=== PATIENT | male | born 1970 | race Caucasian/White ===

== ENCOUNTER 2016-05-30 08:42 | Outpatient (CLI) | payer OTHER | END 2016-05-30 08:43 | disposition home or self-care (01) | DX: G47.33 Obstructive sleep apnea (adult) (pediatric) (principal) ==

== ENCOUNTER 2016-07-04 08:42 | Outpatient (CLI) | payer OTHER | END 2016-07-04 08:43 | disposition home or self-care (01) | DX: G47.33 Obstructive sleep apnea (adult) (pediatric) (principal) ==

== ENCOUNTER 2016-12-04 08:45 | Outpatient (CLI) | payer OTHER | END 2016-12-04 08:46 | disposition home or self-care (01) | LOC: SC 08:45 | PROVIDERS: ATTEND Nurse Practitioner Family | DX: G47.33 Obstructive sleep apnea (adult) (pediatric) (principal) | CPT/HCPCS: 99212; 99214 ==

== ENCOUNTER 2017-03-27 10:51 | Outpatient (CLI) | payer OTHER | END 2017-03-27 10:52 | disposition home or self-care (01) | LOC: SC 10:51 | PROVIDERS: ATTEND Nurse Practitioner Family | DX: G47.33 Obstructive sleep apnea (adult) (pediatric) (principal) | CPT/HCPCS: 99212; 99213 ==

== ENCOUNTER 2017-05-03 08:47 | Outpatient (CLI) | payer OTHER | END 2017-05-03 08:48 | disposition home or self-care (01) | LOC: SC 08:47 | PROVIDERS: ATTEND Nurse Practitioner Family | DX: G47.33 Obstructive sleep apnea (adult) (pediatric) (principal) | CPT/HCPCS: 99212; 99213 ==

== ENCOUNTER 2017-06-21 08:49 | Outpatient (CLI) | payer OTHER | END 2017-06-21 08:50 | disposition home or self-care (01) | LOC: SC 08:49 | PROVIDERS: ATTEND Nurse Practitioner Family | DX: G47.33 Obstructive sleep apnea (adult) (pediatric) (principal) | CPT/HCPCS: 99212; 99214 ==

== ENCOUNTER 2017-07-12 11:18 | Outpatient (CLI) | payer OTHER | END 2017-07-12 11:19 | disposition home or self-care (01) | LOC: SC 11:18 | PROVIDERS: ATTEND Nurse Practitioner Family | DX: G47.33 Obstructive sleep apnea (adult) (pediatric) (principal) | CPT/HCPCS: 99212; 99213 ==

== ENCOUNTER 2018-04-04 08:48 | Outpatient (CLI) | payer OTHER | END 2018-04-04 08:49 | disposition home or self-care (01) | LOC: SC 08:48 | PROVIDERS: ATTEND Nurse Practitioner Family | DX: G47.33 Obstructive sleep apnea (adult) (pediatric) (principal) | CPT/HCPCS: 99212; 99214 ==

== ENCOUNTER 2018-06-13 08:17 | Outpatient (CLI) | payer OTHER | END 2018-06-13 08:18 | disposition home or self-care (01) | LOC: SC 08:17 | PROVIDERS: ATTEND Nurse Practitioner Family | DX: G47.33 Obstructive sleep apnea (adult) (pediatric) (principal) | CPT/HCPCS: 99212; 99214 ==

== ENCOUNTER 2018-07-25 08:14 | Outpatient (CLI) | payer OTHER | END 2018-07-25 08:15 | disposition home or self-care (01) | LOC: SC 08:14 | PROVIDERS: ATTEND Nurse Practitioner Family | DX: G47.33 Obstructive sleep apnea (adult) (pediatric) (principal) | CPT/HCPCS: 99212; 99214 ==

== ENCOUNTER 2018-09-19 | Outpatient (CLI) | payer OTHER | END 2018-09-19 08:18 | disposition home or self-care (01) | DX: G47.33 Obstructive sleep apnea (adult) (pediatric) (principal) | CPT/HCPCS: 99212; 99214 ==

== ENCOUNTER 2018-12-26 08:18 | Outpatient (CLI) | payer OTHER ==
[2018-12-26 09:02] VITALS: BP 120/80
--- NOTE | 2018-12-26 09:02 | SLEEP CARE CONSULTATION ---
Information from patient questionnaire entered by Geneva Franco. I have reviewed and concur with the information entered by Geneva Franco. This document represents the service I personally performed and the decisions made by me, Naima Kaplan, RN, MSN, RECIPROCATING DRILL OPERATOR. History of Present Illness Previous diagnosis: Moderate, Obstructive Sleep Apnea-Hypopnea Syndrome AHI: 25.2 Reason for follow up: three month, other Equipment type: CPAP Equipment obtained from: [employer] Mask style: Full face Mask brand: Humanoid additional information: He continues to struggle to use CPAP. When asked what his biggest obstacle is he responded is that he just has to do it. Then I asked what he needs to do differently and he responded I just have to do it. I again reviewed his sleep study and the impact health risks of untreated apnea. CPAP Compliance Data - Data Reviewed with Patient Average duration of nightly device use: 3.95 Compliance rate %: 6.7 (90 days) Current pressure setting (cmH2O): 5-8 Humidity settin Average residual AHI: 7.4 Average large leak: 50 sec Subjective Patient concerns: reports: condensation in mask/hose, nasal congestion (He wakes with his nose congested. ). denies: aerophagia, mask discomfort, air blowing in eyes, mask leak noise, dry mouth, nose, throat, epistaxis Observed to snore while using device: No Current pressure setting perceived as: comfortable On therapy, patient: reports: sleeping better, awakening more refreshed (he has noted benefit when uses for longer times. ) Initial [place] Sleepiness Scale score: 18 Current [place] Sleepiness Scale score: 3 Allergies and Home Medications Known drug allergies: No Home medication list reviewed: Yes Allergy and home medication list: Diclofenac Sodium DR 75mg tab one up to twice daily Escitalopram Oxalate 10mg tab one every morning Atorvastatin 10mg tab one daily Ranitidine 150mg tab one up to twice daily Vitamin D3 2000IU cap one daily Review of Systems Review of systems same as previous: Yes Physical Exam Blood Pressure: 120/80 Cuff size: long Heart Rate: 80 O2 Saturation: 97 Height: 6 ft Weight: 343 lb Weight change since last visit: gained 9 pounds Body Mass Index: 46.5 BMI Classification: Obesity Class 3 Impression and Plan 1. Obstructive Sleep Apnea-Hypopnea Syndrome, moderate, with poor treatment compliance and elevated residual AHIl. HE has been unable to tolerate higher pressures and declined any adjustment. On CPAP therapy, the patient has better sleep quality and is more rested overall when uses for longer periods but continues to struggle using nightly. To improve use of CPAP , I asked him what he thought would help, he responded that " I just have to do it" and apologized for not using. I again reviewed that this is his choice and discussed why the treatment was ordered and reviewed the results of his polysomnography. 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 He agreed. Fortunately, he denied significant sleepiness symptoms before diagnosis and now but CPAP does make him feel more refreshed and rested overall. His humidity is at maximum which will generally assists nasal congestion. However, he is not congested when he goes to bed and he is waking to gurgling in hose once or twice. So I showed him how to adjust humidity down to 3 and lower if needed. If congestion continues , he can try Claritin and follow up his PCP. He is to ask his pharmacist if any interactions with current medications. He can use the heated hose if condensation but prefers cool air so he is to adjust humidity as directed. He is still falling asleep without CPAP. So I advised him to put on the CPAP while watching TV and relaxing . He is also advised again to use the bedtime alarm. Patient's apnea severity and rationale for treatment to reduce apnea, improve sleep quality and reduce cardiovascular and cerebrovascular events was reviewed. I also reviewed the benefit of consistent device use of CPAP for anxiety. * Continue CPAP pressure at 5-8cmH2O * Use CPAP nightly- miminum goal of 75%. * implement methods to reduce congestoin * If still congestion, follow up with PCP. * Notify me if snoring with mask or feeling that the pressure is too much or too little * Attempt to lose weight * Return for follow up in 1-2 months, or sooner if concerns arise I spent 100% of this 25 minute visit face to face with the patient with greater than 50% of this was spent time counseling the patient and coordination of care.
== END 2018-12-26 08:19 | disposition home or self-care (01) ==
LOC: SC 08:18
PROVIDERS: ATTEND Nurse Practitioner Family
DX: G47.33 Obstructive sleep apnea (adult) (pediatric) (principal); E66.9 Obesity, unspecified; Z68.42 Body mass index [BMI] 45.0-49.9, adult
CPT/HCPCS: 99212; 99214

== ENCOUNTER 2019-04-17 14:23 | Outpatient (CLI) | payer OTHER ==
[2019-04-17 14:52] VITALS: BP 130/80
--- NOTE | 2019-04-17 14:52 | SLEEP CARE CONSULTATION ---
Information from patient questionnaire entered by Geneva Franco. I have reviewed and concur with the information entered by Geneva Franco. This document represents the service I personally performed and the decisions made by me, Naima Kaplan, RN, MSN, GASATERIA ATTENDANT. History of Present Illness Previous diagnosis: Moderate, Obstructive Sleep Apnea-Hypopnea Syndrome AHI: 25.2 Reason for follow up: three month Equipment type: CPAP Equipment obtained from: [employer] Mask style: Full face Mask brand: Respironics Backup mask available: No (keep current as a spare when replaced) Last cushion change: unknown - uses [employer] HPI additional information: Patient feels his lack of compliance / use of CPAP is due to sleeping on couch and instead of going to bed. Patient states he just has to go to bed earlier. His goal is 9pm for bedtime. His waketime is generally 3-4am but does not use an alarm. He has a clock at the couch but not alarm. He has not used the phone alarm yet for bedtime. CPAP Compliance Data - Data Reviewed with Patient Average duration of nightly device use: 3.75 Compliance rate %: 2.2 (90 days he used it 4 days with maximum use of 7 hours ) Current pressure setting (cmH2O): 5-8 Humidity settin Average residual AHI: 3.8 Average large leak: 0 Subjective Patient concerns: reports: dry mouth, nose, throat (dry nose with and with out CPAP ). denies: aerophagia, mask discomfort, air blowing in eyes, mask leak noise, condensation in mask/hose, nasal congestion, epistaxis Observed to snore while using device: No Current pressure setting perceived as: comfortable On therapy, patient: reports: other (does not know if feels better or not with CPAP - usual sleep time is only 5-6 hours ) Initial [place] Sleepiness Scale score: 18 Current [place] Sleepiness Scale score: 7 Allergies and Home Medications Known drug allergies: No Home medication list reviewed: Yes (no changes) Review of Systems Review of systems same as previous: Yes Physical Exam Blood Pressure: 130/80 Cuff size: long Heart Rate: 82 O2 Saturation: 97 Height: 6 ft Weight: 341 lb 12.8 oz Body Mass Index: 46.3 BMI Classification: Morbidly Obese Impression and Plan 1. Obstructive Sleep Apnea-Hypopnea Syndrome, moderate , with poor treatment compliance and good apnea control. On CPAP therapy, the patient is unsure of benefit but has not used but 4 days in the past 90 days. Since he is having so much difficulty using CPAP in remembering to use though he knows he needs to use for his job and health I advised him to consider counseling to assist him to use CPAP better. Patient states he would prefer to try on his own. Thus he is advised to use bedtime alarm to sleep with CPAP every night as discused previously. He is also advised to obtain a minimum of 6 hours of sleep as the 5-6 hours he currently sleeps can increase health risks. Most people require 7-9 hours of sleep for optimal mental and physical function. He is also aware of how his weight affects his apnea risk and overall health. Patient's apnea severity and rationale for treatment to reduce apnea, improve sleep quality and reduce cardiovascular and cerebrovascular events was reviewed. I also reviewed the benefit of consistent device use of CPAP for hypertension, anxiety. * Continue CPAP pressure at 5-8 cmH2O * Use bedtime alarm. * Notify me if snoring with mask or feeling that the pressure is too much or too little * Attempt to lose weight * Call this office if any problems using CPAP * Return for follow up in 2 months , or sooner if concerns arise Time Spent with Patient (minutes): 15 I spent 100% of this visit face to face with the patient with greater than 50% of this was spent time counseling the patient and coordination of care.
== END 2019-04-17 14:24 | disposition home or self-care (01) ==
LOC: SC 14:23
PROVIDERS: ATTEND Nurse Practitioner Family
DX: G47.33 Obstructive sleep apnea (adult) (pediatric) (principal); E66.01 Morbid (severe) obesity due to excess calories; Z68.42 Body mass index [BMI] 45.0-49.9, adult
CPT/HCPCS: 99212; 99213

== ENCOUNTER 2020-06-03 07:49 | Outpatient (CLI) | payer OTHER ==
[2020-06-03 08:25] VITALS: BP 140/80
--- NOTE | 2020-06-03 08:25 | SLEEP CARE CONSULTATION ---
Information from patient questionnaire entered by Geneva Franco. I have reviewed and concur with the information entered by Geneva Franco. This document represents the service I personally performed and the decisions made by , Licha Leonard ARNP. History of Present Illness Service Date and Time: 06/03/2020 0749 Previous diagnosis: Moderate, Obstructive Sleep Apnea-Hypopnea Syndrome AHI: 25.2 (in 2014) Reason for follow up: annual (last seen 03/2019) Equipment type: CPAP Equipment obtained from: [employer] (getting supplies as needed) Mask style: Full face Backup mask available: Yes (old mask) Last cushion change: 1 month Prior sleep studies: Yes Year and Where: 2014 - [facility] Sleep HPI additional information: OLMAN STALLWORTH was diagnosed to have moderate, AHI 25.2, obstructive sleep apnea-hypopnea syndrome and returned today for CPAP therapy annual follow-up. CPAP Compliance Data - Data Reviewed with Patient Average duration of nightly device use: 4 hr 52 Compliance rate %: 70 Current pressure setting (cmH2O): 5-8 Humidity settin Average residual AHI: 4.3 Average large leak: 6 min 27 sec Subjective Missed days of use due to: denies: other (don't like machine) Patient concerns: denies: aerophagia, mask discomfort, air blowing in eyes, mask leak noise, condensation in mask/hose, nasal congestion, dry mouth, nose, throat, epistaxis, other Current pressure setting perceived as: comfortable On therapy, patient: reports: other (he feels it is about the same from sleeping with or without his CPAP). denies: drowsiness while driving Initial [place] Sleepiness Scale score: 18 (in 2013) Current [place] Sleepiness Scale score: 3 Allergies and Home Medications Home medication list reviewed: Yes (no new meds) Review of Systems Review of systems same as previous: Yes (no changes) Physical Exam Blood Pressure: 140/80 Cuff size: long Heart Rate: 73 O2 Saturation: 95 Height: 6 ft Weight: 342 lb Body Mass Index: 46.3 BMI Classification: Morbidly Obese Impression and Plan 1. Obstructive Sleep Apnea-Hypopnea Syndrome, moderate, with fair treatment compliance and good apnea control. On CPAP therapy, the patient states he does not feel any difference between CPAP use and non-use but he denies any drowsy driving issues. 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 He has not been using his CPAP consistently, 14.4% in last 180 days, but he started again about a month ago and he has brought up his compliance to 70%. He states he intends to continue to keep up his CPAP use to the compliance range. Patient's apnea severity and rationale for treatment to reduce apnea, improve sleep quality and reduce cardiovascular and cerebrovascular events was reviewed. * Continue auto CPAP pressure at 5-8 cmH2O * Notify me if snoring with mask or feeling that the pressure is too much or too little * Attempt to lose weight * Call this office if any problems using CPAP * Return for follow up in 1 year, or sooner if concerns arise Counseling Topics: Spare mask, Weight loss health impact Visit Type: In Office Time Spent with Patient (minutes): 23 Provider Statement: I spent 100% of the Face to Face Visit with the patient with greater than 50% spent counseling the patient and coordination of care.
== END 2020-06-03 07:50 | disposition home or self-care (01) ==
LOC: SC 07:49
PROVIDERS: ATTEND Nurse Practitioner Family
DX: G47.33 Obstructive sleep apnea (adult) (pediatric) (principal); E66.01 Morbid (severe) obesity due to excess calories; Z68.42 Body mass index [BMI] 45.0-49.9, adult
CPT/HCPCS: 99212; 99213

== ENCOUNTER 2020-07-20 15:57 | Outpatient (CLI) | payer OTHER ==
--- NOTE | 2020-07-20 16:54 | CT Report ---
PROCEDURE: Abdomen/Pelvis WO INDICATIONS: R FLANK PAIN, HX OF UNRINARY CLACULI TECHNIQUE: Noncontrast 5 mm thick sections acquired from the diaphragms to the symphysis. 5 mm coronal and sagi ttal reformats were then performed. For radiation dose reduction, the following was used: automated exposure control, adjustment of mA and/or kV according to patient size. COMPARISON: CT examinations dated 12/04/2014 and 07/02/2014. FINDINGS: Image quality: Excellent. ABDOMEN: Lung bases: Lung bases are clear. Heart size is normal. Solid organs: Liver and spleen are normal in size. Gallbladder demonstrates calculi within its lume n without evidence of cholecystitis. Pancreas is normal in contours. No adrenal nodules. There is post ablation scarring involving the right interpolar/inferior pole kidney, as before. Kidneys are ot herwise normal in size, without hydronephrosis or nephrolithiasis. Peritoneum and bowel: Unenhanced bowel loops demonstrate normal wall thickness and caliber. Normal a ppendix. No free fluid or air. Nodes and vessels: No retroperitoneal or mesenteric adenopathy by size criteria. Aorta and inferior vena cava are normal in caliber. Miscellaneous: No ventral hernias. PELVIS: Genitourinary: Bladder wall thickness is normal. Miscellaneous: No inguinal hernias or adenopathy. Bones: No suspicious bony lesions. No vertebral body compression fractures. IMPRESSION: 1. No evidence of urinary tract calcification, nor obstruction. 2. Postprocedural changes involving the right kidney. Next line 3. Cholelithiasis with no evidence of cholecystitis. 4. Normal appendix. Reviewed by: Melissa Sapp MD on 07/20/2020 4:53 PM PDT Approved by: Melissa Sapp MD on 07/20/2020 4:53 PM PDT Station ID: [id number]
== END 2020-07-20 15:58 | disposition home or self-care (01) ==
LOC: DI 15:57
PROVIDERS: ATTEND Registered Nurse
DX: K80.20 Calculus of gallbladder without cholecystitis without obstruction (principal)

== ENCOUNTER 2022-01-11 10:56 | Outpatient (CLI) | payer OTHER ==
[2022-01-11 11:44] VITALS: BP 102/60
--- NOTE | 2022-01-11 11:44 | SLEEP CARE CONSULTATION ---
Information from patient questionnaire entered by Earnestine Pal. I have reviewed and concur with the information entered by Earnestine Pal. This document represents the service I personally performed and the decisions made by me, Licha Leonard ARNP. History of Present Illness Service Date and Time: 01/11/2022 1056 Previous diagnosis: Moderate, Obstructive Sleep Apnea-Hypopnea Syndrome AHI: 25.2 (in 2014) Reason for follow up: annual (LAST SEEN 05/2020) Equipment type: CPAP ([facility]) Equipment obtained from: [employer] (not getting supplies, does not have money for supplies) Mask style: Full face Mask brand: Respironics (hybrid mask) Backup mask available: Yes (old mask) Last cushion change: 1 year Prior [facility]: Yes [facility] additional information: OLMAN STALLWORTH was diagnosed to have moderate, AHI 25.2, obstructive sleep apnea-hypopnea syndrome and returned today for CPAP therapy annual follow-up. Sleep Study - Results Prior sleep studies: Yes [facility] and [facility] CPAP Compliance Data - Data Reviewed with Patient Average duration of nightly device use: 4 hours 52 mins Compliance rate %: 26.7 (30 days used; 180 days used) Current pressure setting (cmH2O): 5-8 Average residual AHI: 24.5 Central apnea: 5.6 Obstructive apnea: 15.8 Hypopnea: 3.1 Average large leak: 14 mins 15 secs Subjective Missed days of use due to: reports: mask issues (hard to wear anything on his face), other (recall) Patient concerns: reports: air blowing in eyes, mask leak noise, dry mouth, nose, throat. denies: aerophagia, mask discomfort, condensation in mask/hose, nasal congestion, epistaxis Observed to snore while using device: No Current pressure setting perceived as: comfortable On therapy, patient: reports: sleeping better, awakening more refreshed, being more awake and alert during the day, more rested overall. denies: drowsiness while driving Initial [place] Sleepiness Scale score: 18 (in 2013) Current [place] Sleepiness Scale score: 8 (01/11/2022) Allergies and Home Medications Drug allergies reviewed: Yes (NKDA) Home medication list reviewed: Yes (blood thinner) Review of Systems Review of systems same as previous: No (Atrial fibrillation) Physical Exam Vital signs obtained and entered by: EARNESTINE Barney MA Blood Pressure: 102/60 (LEFT ARM ) Cuff size: long Heart Rate: 60 O2 Saturation: 95 Height: 6 ft Weight: 325 lb 9.6 oz Body Mass Index: 44.1 BMI Classification: Morbidly Obese Impression and Plan 1. Obstructive Sleep Apnea-Hypopnea Syndrome, moderate, with poor treatment compliance and fair apnea control with elevated residual AHI. The patients pressure will be changed to autoCPAP 5-12 cmH20 for elevation of residual AHI. Patient advised to contact me if pressure change is uncomfortable so that it can be adjusted. Goals for apnea control discussed. On CPAP therapy, the patient does have better sleep quality and is more rested overall. He states that he just has issues with keeping things on his face and will take mask off or not wear his CPAP mask. Patient states that he has also not been using his machine regularly since he heard about the recall. He has not registered his machine. He was just diagnosed with atrial fibrillation and he is committed to getting back to using his CPAP regularly. He has a [employer] that was last updated in 2016. The patients CPAP is over 5 years old and of reasonable use. Thus, the CPAP will be updated. The new CPAPs also have a better humidity system which could assist control of patients dryness symptoms. A DWO prescription will be made. Compliance guidelines for new device and follow up discussed. Patient's apnea severity and rationale for treatment to reduce apnea, improve sleep quality and reduce cardiovascular and cerebrovascular events was reviewed. 2. Obesity, unspecified. Currently patients BMI is 44.1. Obesity increases the risk of apnea, CPAP pressure requirements and overall health risks especially cardiovascular and diabetes. Thus patient is advised to lose weight. * Change auto CPAP pressure to 5-12 cmH2O * Update machine * Update supplies * Notify me if snoring with mask or feeling that the pressure is too much or too little * Attempt to lose weight * Call this office if any problems using CPAP * Return for follow up one month after obtaining new device, or sooner if concerns arise Counseling Topics: Spare mask, Weight loss health impact Visit Type: In Office Time Spent with Patient (minutes): 26 Provider Statement: I spent 100% of the Face to Face Visit with the patient with greater than 50% spent counseling the patient and coordination of care.
== END 2022-01-11 10:57 | disposition home or self-care (01) ==
LOC: SC 10:56
PROVIDERS: ATTEND Nurse Practitioner Family
DX: G47.33 Obstructive sleep apnea (adult) (pediatric) (principal); E66.01 Morbid (severe) obesity due to excess calories; Z68.41 Body mass index [BMI] 40.0-44.9, adult
CPT/HCPCS: 99212; 99213

== ENCOUNTER 2022-12-08 14:06 | Outpatient (CLI) | payer OTHER | END 2022-12-08 14:07 | disposition E | LOC: EMS 14:06 ==